=== PATIENT | female | born 2000 | race Caucasian/White ===

== ENCOUNTER → 2020-09-03 | Outpatient (CLI) | payer BC ==
[2020-09-03 13:31] LABS: HEMATOCRIT 40.6 % (37.0-47.0); MEAN CORPUSCULAR HGB CONC 32.5 g/dl (33.0-37.0); MEAN PLATELET VOLUME 10.5 fl (9.6-12.3); RED BLOOD COUNT 4.72 10*6/uL (4.10-5.10); RED CELL DISTRI WIDTH 13.3 % (0-14.5); WHITE BLOOD COUNT 12.5 10*3/uL (4.8-10.8)
[2020-09-03 14:02] LABS: ALBUMIN 3.4 gm/dl (3.1-4.5); ALKALINE PHOSPHATASE 75 U/L (45-117); BUN 9 mg/dl (7-24); CHLORIDE 105 mmol/L (98-107); CHOLESTEROL 183 mg/dL (<200); CREATININE 0.57 mg/dL (0.55-1.02); FREE T4 0.99 ng/dl (0.76-1.46); HDL CHOLESTEROL 28 mg/dl (40-60); LDL CHOLESTEROL 129 mg/dL (9-159); POTASSIUM 4.2 mmol/L (3.5-5.1); SGOT/AST 21 IU/L (3-35); SGPT/ALT 23 U/L (12-78); SODIUM 134 mmol/L (136-145); TRIGLYCERIDES 129 mg/dl (<150); VLDL CHOLESTEROL 26 mg/dL (6-40)
[2020-09-03 14:06] LABS: TOTAL PROTEIN 7.9 gm/dL (6.4-8.2)
[2020-09-03 14:35] LABS: VITAMIN D, 25-HYDROXY 11.7 ng/mL (30-100)
== END | disposition home or self-care (01) ==
LOC: LAB 13:00
PROVIDERS: ATTEND Family Medicine
DX: E78.00 Pure hypercholesterolemia, unspecified (principal); E66.9 Obesity, unspecified; E55.9 Vitamin D deficiency, unspecified; R53.83 Other fatigue; G47.33 Obstructive sleep apnea (adult) (pediatric)

== ENCOUNTER → 2021-01-26 | Outpatient (CLI) | payer BC | END | disposition home or self-care (01) | LOC: COVID19 16:11 | PROVIDERS: ATTEND Internal Medicine | DX: Z11.52 Encounter for screening for COVID-19 (principal) ==